=== PATIENT | male | born 1970 | race Hispanic/Latino ===

== ENCOUNTER → 2019-06-21 | Outpatient (CLI) | payer OTHER ==
--- NOTE | 2019-06-21 15:08 | Diagnostic Imaging Report ---
MRI of the right forefoot without contrast. History: Ulcer. Foot pain. Osteomyelitis. Diabetes. Pain worse with standing. Prior amputation. Technique: Multiplanar multisequence MRI of the foot without contrast Comparison: None Findings: Prior amputation of the distal first toe with associated postsurgical change. Soft tissue ulceration at the plantar aspect of the foot at the level of the distal fourth metatarsal with adjacent abnormal soft tissue edema likely due to cellulitis. No focal collection/abscess is seen. Abnormal bone marrow edema and cortical destruction involving the distal second and third metatarsals with abnormal adjacent soft tissue edema consistent with osteomyelitis. No adjacent well-formed drainable fluid collection/abscess is seen. Mild diffuse muscle atrophy. Thickening and degeneration with midsubstance partial tearing involving the flexor tendon of the first toe best seen on series 4 image 11 through 15. No ligamentous tear. The visualized neurovascular bundles are intact. Impression: Soft tissue ulceration at the plantar aspect of the foot at the level of the distal fourth metatarsal with adjacent abnormal soft tissue edema likely due to cellulitis. No focal collection/abscess is seen. Abnormal bone marrow edema and cortical destruction involving the distal second and third metatarsals with abnormal adjacent soft tissue edema consistent with osteomyelitis. No adjacent well-formed drainable fluid collection/abscess is seen. Signed by: Dr. Ethan Ch M.D. on 06/21/2019 3:04 PM
== END ==
LOC: MRI 06-20 08:24
PROVIDERS: ATTEND Podiatrist Foot & Ankle Surgery
DX: M86.071 Acute hematogenous osteomyelitis, right ankle and foot (principal)

== ENCOUNTER → 2020-03-21 | Day surgery (SDC) | payer OTHER ==
[2020-03-18 15:31] LABS: ANION GAP 16.6 mmol/L (8-16); CALCIUM 8.2 mg/dL (8.4-10.2); CREATININE, SERUM 1.67 mg/dL (0.72-1.25); POTASSIUM 4.6 mmol/L (3.5-5.1)
--- NOTE | 2020-03-20 13:07 | NUR ---
PER DR. LAURA CAN PROCEED WITH CASE. PT HAD BS- 311, NA- 130, HGBAIC- 9.5. PLEASE MAKE SURE PT F/U WITH PCP REGARDING DIABETIC MEDICATION REGIMEN.
[~2020-03-21] MED LIST: BUPIVACAINE 0.25% 30ML SDV INJ ONE; CEFAZOLIN SOD 1 GM/NS 50ML 100 ML IV ONE; DEXAMETHASONE SOD PHOS INJ 4 MG/ML VIAL ONE; FARXIGA5 MG PO; FENTANYL CITRATE/PF 100MCG/2 ML INJ ONE; GLYBURIDE5 MG PO; LIDOCAINE HCL 2% LOCAL INJ 5 ML SDV VIAL INJ ONE; LISINOPRIL5 MG PO; METFORMIN HCL500 MG PO; MIDAZOLAM HCL 2 MG/2 ML VIAL ONE; NEOSTIGMINE 1 MG/ML 10ML VIAL ONE; ONDANSETRON HCL INJ 2MG/ML 2ML 2 MG/ML VIAL ONE; PROPOFOL IV EMULSION 10 MG/ML 20 ML VIAL ONE; SEVOFLURANE INHAL SOLN 250 ML PEN BTL ONE
[2020-03-21 09:15] VITALS: BP 145/84
--- NOTE | 2020-03-24 21:07 | Operative Report ---
DATE OF PROCEDURE: 03/21/2020 SURGEON: Stoney Watson MD PREOPERATIVE DIAGNOSES: 1. Phimosis. 2. Recurrent balanitis. POSTOPERATIVE DIAGNOSES: 1. Phimosis. 2. Recurrent balanitis. PROCEDURES: Slit prepuce. ANESTHESIA: General. ESTIMATED BLOOD LOSS: Minimal. COMPLICATIONS: None. INDICATIONS: Mr. Luevano is a very pleasant 49-year-old male, diabetic, morbidly obese with a history of recurrent penile infections and an inability to withdraw his foreskin for years. He voiced understanding of the options, alternatives, risks, and benefits. We will proceed with a slit first, which will release infection and then returned later day for a staged circumcision. He voiced understanding of the options, alternatives, risks, and benefits, and elected to proceed. PROCEDURE IN DETAIL: After informed consent was obtained, the patient was taken to the operative suite, placed supine on the operative table, underwent general anesthesia by the Anesthesia Service, placed in supine position, and sterilely prepped and draped in standard fashion for circumcision. An artificial erection was created by pressing at the base of the glans, mcmillan the glans, and was transversely marked with a marker. A vertical incision was then made in the dorsum. This was then sharply incised over the fibrotic band releasing the foreskin. The inner prepuce was then prepped with iodine and washed clean. The foreskin was then withdrawn and replaced multiple times to ensure that this released infection and allow withdrawing of the skin. The wound flaps were then closed with a running chromic gut stitch. The wound was dressed. The patient was awakened from anesthesia and transported to the recovery room in excellent condition with all instrument counts correct x2. Stoney Watson MD ES/MODL /[id number]
== END | disposition home or self-care (01) ==
LOC: OR 05:44
PROVIDERS: ATTEND Urology
DX: N47.1 Phimosis (principal); N48.1 Balanitis; R81 Glycosuria; R35.1 Nocturia; E11.22 Type 2 diabetes mellitus with diabetic chronic kidney disease; I12.9 Hypertensive chronic kidney disease with stage 1 through stage 4 chronic kidney disease, or unspecified chronic kidney disease; N18.9 Chronic kidney disease, unspecified; E66.01 Morbid (severe) obesity due to excess calories; F41.9 Anxiety disorder, unspecified; Z01.810 Encounter for preprocedural cardiovascular examination; Z01.812 Encounter for preprocedural laboratory examination; Z11.59 Encounter for screening for other viral diseases; Z79.84 Long term (current) use of oral hypoglycemic drugs; Z68.42 Body mass index [BMI] 45.0-49.9, adult
CPT/HCPCS: 36415 ×2; 54001; 80048; 82948; 83036; 93005; J0690; J1100; J2001; J2250; J2405; J2704; J2710; J3010; U0002